=== PATIENT | female | born 1945 | race Caucasian/White ===

== ENCOUNTER 2018-12-11 16:01 | Emergency (ER) | payer MEDICARE ==
[2018-12-11 16:34] LABS: #Basophils 0.1 thou/uL (0.0-0.2); #Eosinphils 0.2 thou/uL (0.0-0.7); #Lymphocytes 1.3 thou/uL (1.20-3.40); #Monocytes 0.3 thou/uL (0.11-0.59); #Neutrophils 4.8 thou/uL (1.40-6.50); %Eosinophils 2.8 % (0.0-10.0); %Lymphocytes 19.2 % (21.0-51.0); %Monocytes 4.9 % (0.0-10.0); %Neutrophils 71.1 % (42.0-75.0); Hemoglobin 15.8 g/dL (12.0-16.0); INR-International Normal Ratio 0.9; Mean Corpuscular HGB CONC 30.3 g/dL (32.0-36.0); Mean Corpuscular Hemoglobin 26.1 pg (27.0-31.0); Mean Platelet Volume 6.6 fL (7.4-10.4); PTT 29.1 SEC (22.9-36.1); Platelet Count 352 thou/uL (130-400); Prothrombin Time 12.1 SEC (12.0-14.7); RBC Distribution Width 14.2 % (11.5-14.5); Red Blood Cell (RBC) Count 6.04 mill/uL (4.20-5.40); White Blood Cell (WBC) Count 6.8 thou/uL (4.8-10.8)
[2018-12-11 16:47] LABS: CKMB 0.6 ng/mL (0-6.6)
[2018-12-11 16:50] LABS: Sodium 141 mmol/L (136-145)
[2018-12-11 16:51] LABS: ALT (SGPT) 14 U/L (8-55); AST (SGOT) 16 U/L (5-34); Albumin 4.6 g/dL (3.4-4.8); Calcium 9.7 mg/dL (7.8-10.44); Potassium 3.8 mmol/L (3.5-5.1)
[2018-12-11 16:52] LABS: Alkaline Phosphatase 77 U/L (40-110); BUN (Urea Nitrogen) 13 mg/dL (9.8-20.1); Bilirubin, Total 0.4 mg/dL (0.2-1.2); Calc. Creatinine Clearance 0 mL/min (70-130); Chloride 104 mmol/L (98-107); Estimated GFR-MDRD 71; Globulin 2.4 g/dL (2.4-3.5); Glucose 99 mg/dL (83-110)
--- NOTE | 2018-12-11 16:52 | CT ---
CT HEAD WITHOUT CONTRAST: 12/11/18 INDICATIONS: Left arm tingling. Stroke protocol. Ventricles have normal size and position. Mild chronic ischemic white matter change. There is no evid ence of acute mass, hemorrhage, or infarct. Sinuses appear clear. IMPRESSION: No acute abnormality. Findings relayed to the ER physician at 4:48 p.m. POS: OFF
[2018-12-11 16:53] LABS: Anion Gap 15 mmol/L (10-20); Carbon Dioxide 26 mmol/L (23-31)
--- NOTE | 2018-12-11 16:56 | RAD ---
PORTABLE CHEST: HISTORY: Arm tingling. FINDINGS: The lung [place] are clear of infiltrate. No evidence of vascular congestion. Heart and mediastinum ar e unremarkable. IMPRESSION: No acute finding. POS: OFF
[2018-12-11] MEDS ORDERED: Aspirin Chewable 81 MG TAB ONE (16:58)
[2018-12-11 18:04] LABS: Bilirubin Negative (Negative); Blood, Urine Negative (Negative); Clarity Clear (Clear); Glucose, Urine (Dipstick) Negative (Negative); Leukocyte Trace (Negative); Nitrite Negative (Negative); Protein, Urine (Dipstick) Negative (Neg-Trace); Urobilinogen 0.2 mg/dL (Less than 2)
[2018-12-11 18:05] LABS: Bacteria/HPF Rare-Few HPF (None Seen); RBC/HPF 0-3 HPF (0-3); Squamous Epithelial 0-3 HPF (0-3); WBC/HPF 0-3 HPF (0-3)
== END 2018-12-11 18:12 | disposition short-term general hospital (02) ==
LOC: MADERS 16:01
DX: G45.9 Transient cerebral ischemic attack, unspecified (principal); E78.5 Hyperlipidemia, unspecified
CPT/HCPCS: 36416; 70450; 71045; 80053; 81003; 81015; 82553; 84484; 85025; 85610; 85730; 93005